=== PATIENT | male | born 1955 ===

== ENCOUNTER → 2024-12-19 16:39 | Outpatient (ROUT) | payer OTHER, SELFPAY | PROVIDERS: Visit Provider Dermatology | DX: Z09 Encounter for follow-up examination after completed treatment for conditions other than malignant neoplasm (principal) | CPT/HCPCS: 87070; 87075; 87077; 87205 ==

== ENCOUNTER → 2024-12-26 10:54 | Outpatient (ROUT) | payer OTHER, SELFPAY | PROVIDERS: Visit Provider Dermatology | DX: Z09 Encounter for follow-up examination after completed treatment for conditions other than malignant neoplasm (principal) | CPT/HCPCS: 87070; 87205 ==